=== PATIENT | female | born 1990 | race Two or more races ===

== ENCOUNTER 2024-05-25 14:22 | Outpatient (REF) | payer SELFPAY ==
--- OUTSIDE RECORDS SUMMARY | 2024-05-25 14:26 | XMS_ITS | Encounter Summary ---
Author Organization [employer] Address [address] [facility] 7 [place] [address] Care Team Providers Care Casing Crew Name Role Phone Jose Haider MD Primary Care Prov ider Reason for Visit * Reason Onset Date Comments Nurse Triage 05/23/2024 Encounter Details Date Type Department Care Team ([facility] st Contact Info) Description 05/23/2024 Telephone [facility] CHC MED & PEDS [address] [place] [address] Jose Haider MD [address] [place] [address] Nurse Triage Social History Tobacco Use Types Packs/Day Years Used Date Smoking Tobacco: Some Days Cigarettes Depression Answer Date Recorded Patient Health Questionnaire-9 Score 2 12/18/2022 Housing Stability Answer Date Recorded What is your housing situation today? I have abran mckeon 02/15/[address] you li ve. Do you have problems with any of the following? None of the above 02/15/2023 Food Insecurity Answer Date Recorded Within the past 12 months, y ou worried that your food would run out before you got money to buy more: Never True 02/15/2023 Within the past 12 months,th e food you bought just didn't last and you didn't have enough money to get more: Never True Transportation Answer Date Recorded In the past 12 months, has l ack of transportation kept you from medical appts, meetings, work or from getting things needed for daily living? No 02/15/2023 Utilities Answer Date Recorded In the past 12 months, has t he Turbine, gas, oil or water company threatened to shut off services in your home? No 02/15/2023 Depression Answer Date Recorded Patient Health Questionnaire-2 Score 2 12/18/2022 Comments No Sex and Gender Information Value Date Recorded Sex Assigned at Female 02/16/2022 10:35 AM EDT Legal Sex Female 10:35 AM EDT Gender Identity Female 02/16/2022 10:35 AM EDT Sexual Orientation Bisexual 02/16/2022 10 :35 AM EDT documented as of this encounter Miscellaneous Notes * Telephone Encounter - Bebe Padilla RN - 05/23/2024 12:21 PM EST Call returned to Katelynn Au to triage below. Reports onset of current bleeding started first week of April. Pt using having both bright and marroon color. Changing tampons q2hs. NO large blood clots. No bruising or nosebleeds. Pt advised that last depo in Dec, missed next dose. Pt states did not keep appt for next Depo as did not want to continue with this method. Pt denies any use of any other methods. Pt advised of disposition, agrees to sick on site with CNM to discuss alt BC methods and assess bleeding. Reviewed with pt to call back if bleeding increases, severe pain or to seek ER if afterhours. Pt agrees. Protocol Used: Vaginal Bleeding - Abnormal (Adult) Protocol-Based Disposition: See in Office or Video Visit within 2 Weeks Future Appointments Date Time Provider Department Center 05/25/2024 1:00 PM Brittney Davis CNM MEDICINE [facility] Insurance verified as active per Real Time Eligibility in [facility]. Positive Triage Questions: * Periods last > 7 days * Bleeding or spotting between regular periods occurs more than three cycles (3 months), and using control medicine (e.g., pills, patch, Depo-Provera, Implanon, vaginal ring, Mirena IUD) * All higher-acuity triage questions were negative Care Advice Discussed: * Reasons To Call Back - Severe abdomen pain or lightheadedness occurs - Bleeding worsens - You become worse * Telephone Encounter - Abeba Thrasher - 05/23/2024 12:10 PM EST Symptom: Vaginal Bleeding - Not Outcome: Talk to a nurse or provider within 15 minutes Reason: Heavy bleeding The caller accepted this outcome. documented in this encounter Plan of Treatment Upcoming Encounters Date Type Department Care Team (Late st Contact Info) Description 07/06/2024 1:45 PM EDT Office Visit [facility] MEDICINE [address] [place] [address] Brittney Davis CNM [address] [place], [place] [phone] documented as of this encounter Visit Diagnoses Not on filedocumented in this encounter Additional Health Concerns Assessment Noted Time PHQ-9 Depression Total Score: 2 12/19/19 23 1:47 PM EDT documented as of this encounter Care Teams Casing Crew Relationship Specialty Start Date End Date Jose Haider MD [address] [place] [phone] PCP - General Internal Medicine 09/12/19 documented as of this encounter
--- OUTSIDE RECORDS SUMMARY | 2024-05-25 14:26 | XMS_ITS | Encounter Summary ---
Author Organization [employer] Address [address] [facility] 7 [place] [address] Care Team Providers Care Repairer Auto Clocks Name Role Phone Jose Haider MD Primary Care Prov ider Encounter Details Date Type Department Care Team (Late st Contact Info) Description 05/25/2024 1:00 PM EST Office Visit [facility] MEDICINE [address] [place], [place] [phone] Brittney Davis CN [address] [place] [address] Abnormal uterine bleeding (Primary Dx); Screening examination for venereal disease; Condyloma Social History Tobacco Use Types Packs/Day Years Used Date Smoking Tobacco: Former Cigarettes Tobacco Cessation:Counseling Given: Not Answered Comments:Vapinf 5% nicotine Alcohol Use Standard Drinks/Week Comments Not Currently 0 (1 standard drink = 0.6 oz pur e alcohol) Depression Answer Date Recorded Patient Health Questionnaire-9 Score 2 12/18/2022 Housing Stability Answer Date Recorded What is your housing situation today? I have abransigrid mckeon 02/15/[address] you [...] the past 12 months, has t he electric, gas, oil or water company threatened to [...] AM EDT documented as of this encounter Last Filed Vital Signs Vital Sign Reading Time Taken Comments Blood Pressure 112/68 05/25/2024 1:34 PM EST Pulse 100 05/25/2024 1:34 PM EST Temperature 36.3 ??C (97.3 ??F) 05/25/2024 1:34 PM ES T Respiratory Rate 20 05/25/2024 1:34 PM EST Oxygen Saturation 99% 05/25/2024 1:34 PM EST Inhaled Oxygen Concentration - - Weight 78.7 kg (173 lb 6.4 oz) 05/25/2024 1:34 P M EST Height 162.6 cm (5' 4 ) 05/25/2024 1:34 PM EST Body Mass Index 29.76 05/25/2024 1:34 PM EST documented in this encounter Plan of Treatment Upcoming Encounters Date Type Department Care Team (Late st Contact Info) Description 07/06/2024 1:45 PM EDT Office Visit [facility] MEDICINE [address] [place] [address] Brittney Davis CNM [address] [place] [address] Scheduled Orders Name Type Priority Associated Diagnoses Orde r Schedule Chlamydia/N. Gonorrhoeae RNA, TMA, Vagina Microbiology Routine Screening examination for venereal disease Ordered: 05/25/2024 Trichomonas RNA (Urine/Vaginal) Lab Routine Screening examination for venereal disease Ordered: 05/25/2024 Syphilis Screen Lab Routine Screening examination for venereal disease Expected: 05/25/2024 (Approximate), Expires: 05/25/2025 HIV-1/2 Antigen and Antibodies, Fourth Generation, with Reflexes Lab Routine Screening examination for venereal disease Expected: 05/25/2024 (Approximate), Expires: 05/25/2025 Hepatitis B Core Antibody, Total Lab Routine Screening examination for venereal disease Expected: 05/25/2024 (Approximate), Expires: 05/25/2025 Hepatitis B Surface Antibody, Qualitative Lab Routine Screening examination for venereal disease Expected: 05/25/2024 (Approximate), Expires: 05/25/2025 Hepatitis B surface antigen, EIA Lab Routine Screening examination for venereal disease Expected: 05/25/2024 (Approximate), Expires: 05/25/2025 Hepatitis C Antibody with Reflex to HCV, RNA, Quantitative, Real-Time PCR Lab Routine Screening examination for venereal disease Expected: 05/25/2024 (Approximate), Expires: 05/25/2025 Chlamydia/N. Gonorrhoeae RNA, TMA, Throat Microbiology Routine Screening examination for venereal disease Expected: 05/25/2024 (Approximate), Expires: 05/25/2025 documented as of this encounter Procedures Procedure Name Priority Date/Time Associated Diagnosis Comments POCT , URINE Routine 05/25/2024 2:11 PM EST Abnormal uterine bleeding POCT HEMOGLOBIN Routine 05/25/2024 1:34 PM EST Abnormal uterine bleeding documented in this encounter Results * POCT , urine manually resulted (05/25/2024 2:11 PM EST) Preg Test, Ur Negative Negative, Indeterminate, None Detected, Invalid, Specimen unsatisfactory for evaluation, Weakly Positive QC Media Lot # [id number] Lot# Expiration Date [id number] Urine 05/25/2024 2:11 PM EST Brittney Davis CNM POINT OF CARE TEST ENTER/ EDIT ORDERABLES Final Result * POCT hemoglobin docked device (05/25/2024 1:34 PM EST) Hemoglobin 12.6 12.0 - 15.0 QC Media Lot # [id number] Lot# Expiration Date [id number] Blood 05/25/2024 1:34 PM EST Brittney Susan CN POINT OF CARE TEST ENTER/ EDIT ORDERABLES Final Result documented in this encounter Visit Diagnoses Diagnosis Abnormal uterine bleeding- Primary Unspecified disorder of menstruation and other abnormal bleeding from female genital tract Screening examination for venereal disease Condyloma Condyloma acuminatum documented in this encounter Additional Health Concerns Assessment Noted Time PHQ-9 Depression Total Score: 2 12/19/19 23 1:47 PM EDT documented as of this encounter Care Teams Repairer Auto Clocks Relationship Specialty Start Date End Date Jose Haider MD [address] [place] [phone] PCP - General Internal Medicine 09/12/19 documented as of this encounter
--- OUTSIDE RECORDS SUMMARY | 2024-05-25 14:26 | XMS_ITS | Encounter Summary ---
Author Organization [employer] Address [address] [place] [address] [address] [place] [address] Care Team Providers Care Lumber Loader Name Role Phone Jose Haider MD Primary Care Prov ider Encounter Details Date Type Department Care Team (Late st Contact Info) Description 04/09/2022 Orders Only [facility] MEDICINE [address] [place] [phone] Jose Haider MD [address] [place] [phone] control counseling (Primary Dx) Social History Tobacco Use Types Packs/Day Years Used Date Smoking Tobacco: Some Days Cigarettes Comments No Sex and Gender Information Value Date Recorded Sex Assigned at Female 02/16/2022 10:35 AM EDT Legal Sex Female 10:35 AM EDT Gender Identity Female 02/16/2022 10:35 AM EDT Sexual Orientation Bisexual 02/16/2022 10 :35 AM EDT COVID-19 Exposure Response Date Recorded In the last 10 days, have yo u been in contact with someone who was confirmed or suspected to have Coronavirus/COVID-19? No / Unsure 04/09/2022 1:49 PM EST documented as of this encounter Plan of Treatment Upcoming Encounters Date Type Department Care Team (Late st Contact Info) Description 07/06/2024 1:45 PM EDT Office Visit [facility] MEDICINE [address] [place] [phone] Brittney Davis CNM [address] [place], [place] [phone] documented as of this encounter Visit Diagnoses Diagnosis control counseling- Primary documented in this encounter Care Teams Lumber Loader Relationship Specialty Start Date End Date Jose Haider MD [address] [place] [phone] PCP - General Internal Medicine 09/12/19 documented as of this encounter
--- OUTSIDE RECORDS SUMMARY | 2024-05-25 14:26 | XMS_ITS | Encounter Summary ---
Author Organization [employer] Address [address] [facility] 7t [place] [address] Care Team Providers Care Corporate Executive Chef Name Role Phone Jose Haider MD Primary Care Prov ider Encounter Details Date Type Department Care Team (Latest Contact Info) Description 05/25/2024 Travel Social History Tobacco Use Types Packs/Day Years Used Date Smoking Tobacco: Former Cigarettes Comments:Vapinf 5% nicotine Alcohol Use Standard Drinks/Week [...] AM EDT documented as of this encounter Plan of Treatment Upcoming Encounters Date Type Department Care Team (Late st Contact Info) Description 07/06/2024 1:45 PM EDT Office Visit [facility] MEDICINE [address] [place] [address] Brittney Davis CNM [address] [place] [address] documented as of this encounter Visit Diagnoses Not on filedocumented in this encounter Additional Health Concerns Assessment Noted Time PHQ-9 Depression Total Score: 2 12/19/19 23 1:47 PM EDT documented as of this encounter Care Teams Corporate Executive Chef Relationship Specialty Start Date End Date Jose Haider MD [address] [place] [phone] PCP - General Internal Medicine 09/12/19 documented as of this encounter
--- OUTSIDE RECORDS SUMMARY | 2024-05-25 14:26 | XMS_ITS | Encounter Summary ---
Author Organization [employer] Address [address] [facility] 7 [place] [address] Care Team Providers Care Oracle Fusion Developer Name Role Phone Jose Haider MD Primary Care Prov ider Reason for Visit * Reason Onset Date Comments Triage 08/21/2022 Encounter Details Date Type Department Care Team ([facility] st Contact Info) Description 08/21/2022 Telephone [facility] CHC MED & PEDS [address] [place] [address] Jose Haider MD [address] [place] [address] Triage Social History Tobacco Use Types Packs/Day [...] encounter Miscellaneous Notes * Telephone Encounter - Therese Zuniga RN - 08/21/2022 2:52 PM EDT Triage call Pt reports , 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 Pt reports has never had this kind of pain before but, it feels like muscle type pain in right hand/arm . Pt denies swelling, redness , warmth. Pt is using tiger balm and biofreeze creams at night but, it hurts more duringthe day. Apt with PCP 08/27 @ 130pm. Pt is offered apt 08/25 but requests 08/27 due to work schedule. Pt agrees with disposition and home care reviewed. Protocol Used: Hand and Wrist Pain (Adult) Protocol-Based Disposition: See in Office or Video Visit within 3 Days Override (Final) Disposition: See in Office or Video Visit within 2 Weeks Override Reason: Other Video visit not offered Positive Triage Questions: * Moderate pain (e.g., interferes with normal activities) and present > 3 days * Patient wants to be seen * All higher-acuity triage questions were negative Care Advice Discussed: * Reassurance and Education - Overuse * Use a Cold Pack for Pain * Use Heat After 48 Hours for Pain * Rest * Pain Medicines * Pain Medicines - Extra Notes and Warnings * Expected Course * Reasons To Call Back - Moderate pain (e.g., interferes with normal activities) lasts more than 3 days - Mild pain lasts more than 7 days - Arm swelling occurs - Signs of infection occur (e.g., spreading redness, warmth, fever) - You become worse * Telephone Encounter - Zhou Xavier - 08/21/2022 2:33 PM EDT Symptom: Pain - Severe Outcome: Schedule an urgent appointment (within 1 hour) or talk to a nurse or provider soon Reason: Caller denied all higher acuity questions The caller accepted this outcome Please contact pt at [phone] documented in this encounter Plan of Treatment Upcoming Encounters Date Type Department Care Team (Late st Contact Info) Description 07/06/2024 1:45 PM EDT Office Visit [facility] MEDICINE [address] [place], [place] [phone] Brittney Davis CNM [address] [place] [address] documented as of this encounter Visit Diagnoses Not on filedocumented in this encounter Care Teams Oracle Fusion Developer Relationship Specialty Start Date End Date Jose Haider MD [address] [place] [phone] PCP - General Internal Medicine 09/12/19 documented as of this encounter
--- OUTSIDE RECORDS SUMMARY | 2024-05-25 14:26 | XMS_ITS | Encounter Summary ---
Author Organization [email or web address] Address [address] [place] [address] [address] [place] [address] Care Team Providers Care Fire Officer Name Role Phone Jose Haider MD Primary Care Prov ider Reason for Visit * Reason Onset Date Comments Appointment Request 08/21/2022 Encounter Details Date Type Department Care Team (Late Contact Info) Description 08/21/2022 Telephone [facility] CHC MED & PEDS [address] [place] [address] Jose Haider MD [address] [place] [address] Appointment Request Social History Tobacco Use Types Packs/Day Years Used Date Smoking Tobacco: Some Days Cigarettes Comments No Sex and Gender Information Value Date Recorded Sex Assigned at Female 02/16/2022 10:35 AM EDT Legal Sex Female 10:35 AM EDT Gender Identity Female 02/16/2022 10:35 AM EDT Sexual Orientation Bisexual 02/16/2022 10 :35 AM EDT documented as of this encounter Miscellaneous Notes * Telephone Encounter - Zhou Xavier - 08/21/2022 2:33 PM EDT Tc from pt requesting an appt for her next depo shot. Please contact pt at [phone] documented in this encounter Plan of Treatment Upcoming Encounters Date Type Department Care Team (Late Contact Info) Description 07/06/2024 1:45 PM EDT Office Visit [facility] MEDICINE [address] [place], [place] [phone] Brittney Davis CNM [address] [place], [place] [phone] documented as of this encounter Visit Diagnoses Not on filedocumented in this encounter Care Teams Fire Officer Relationship Specialty Start Date End Date Jose Haider MD [address] [place] [phone] PCP - General Internal Medicine 09/12/19 documented as of this encounter
--- OUTSIDE RECORDS SUMMARY | 2024-05-25 14:26 | XMS_ITS | Clinical Summary ---
Author Organization [employer] Address [address] [facility] 7 [place] [address] Care Team Providers Care Normalizer Name Role Phone Jose Haider MD Primary Care Prov ider Allergies Active Allergy Reactions Criticality Noted Date Comments Cyclobenzaprine Rash Low 02/08/2020 Penicillin G Rash Low 02/08/2020 Medications cholecalciferol (Vitamin D-3) 50 MCG (1999) tablet Take 1 tablet by mouth in the morning. 07/05/19 22 Active LORazepam (Ativan) 1 MG tablet Take 1 tablet by mouth at bed time. Active nicotine (Nicoderm, Step 2) 14 MG/24HR patch Place 1 patch on the skin at bed time. 06/28/19 21 Active nicotine (Nicoderm, Step 3) 7 MG/24HR patch Place 1 patch on the skin at bed time. 06/28/19 21 Active nicotine polacrilex (Nicorette) 2 MG gum Take by mouth. 06/28/19 21 Active omeprazole (PriLOSEC) [address] capsule Take 1 capsule by mouth with breakfast and with evening meal. Active oxyCODONE-acetamin ophen (Percocet) 5-325 MG tablet Take 1 tablet by mouth every 6 (six) hours. Active ARIPiprazole (Abilify) 10 MG tablet TAKE 1 TABLET BY MOUTH EVERYDAY AT BEDTIME 07/11/19 22 Active FLUoxetine (PROzac) 20 MG capsule TAKE 2 CAPSULES BY MOUTH EVERY DAY IN THE MORNING 05/23/19 22 Active ondansetron ODT (Zofran-ODT) 4 MG disintegrating tablet DISSOLVE 1 TABLET BY MOUTH 3 TIMES A DAY NEEDED FOR NAUSEA 04/03/20 22 Active tamsulosin (Flomax) 0.4 MG 24 hr capsule TAKE 1 CAPSULE BY MOUTH EVERY DAY AT BEDTIME FOR KIDNEY STONE 04/03/20 22 Active ibuprofen 600 MG tablet TAKE 1 TABLET BY MOUTH EVERY 6 HOURS NEEDED FOR PAIN MAX 2400MG/DAY 90 tablet 09/17/19 23 Active methocarbamol (Robaxin) 750 MG tabletIndications: Chronic midline low back pain with right-sided sciatica Take 1 tablet (750 mg) by mouth 4 times daily for 10 days. 40 tablet 09/25/19 23 Active melatonin 10 MG tablet Take 1 tablet (10 mg) by mouth at bedtime. 90 tablet 12/19/19 23 Active hydrOXYzine HCl (Atarax) 25 MG tablet TAKE 1 TABLET BY MOUTH TWICE A DAY NEEDED 60 tablet 12/19/19 23 Active gabapentin (Neurontin) 300 MG capsule Take 300 mg by mouth 2 times daily. 07/08/19 24 Active gabapentin (Neurontin) 600 MG tablet 09/29/19 24 Active oxyCODONE (Roxicodone) 5 MG immediate release tablet Take 5 mg by mouth every 6 (six) hours if needed. 09/12/19 24 Active prazosin (Minipress) 1 MG capsule TAKE 1 CAPSULE BY MOUTH EVERY DAY AT NIGHT 06/04/19 24 Active propranolol (Inderal) 10 MG tablet 09/29/19 24 Active QUEtiapine (SEROquel) 25 MG tablet 09/30/19 24 Active podofilox (Condylox) 0.5 % gel Apply twice a day x 3 days, then stop for 4 days. Repeat this cycle weekly for a month (4 weeks) 3.5 g 1 05/25/19 25 Active Drospirenone (Slynd) 4 MG tablet Take 1 tablet by mouth Once per day. 28 tablet 11 05/25/19 25 Active medroxyPROGESTERon e (Depo-Provera) 150 MG/ML injection Inject 1 mL (150 mg) into the shoulder, thigh, or buttocks every 3 (three) months. 1 mL 3 09/15/19 24 025 Discontin ued(Side effects) Active Problems Problem Noted Date Diagnosed Date Sprain of right ankle 10/10/2023 Overview (10/10/2023): Elevate foot 30 degrees above baseline for at least 15min 3x/d. She's to be out of work x 1w then back with restriciton to lift heavy weights. Wear ankle brace daily, walk with a cane Ibuprofen + tamadol prn x 1w max, precautions with driving and activities that require vigilance. Will refer to PT for complete rehab as she has to walk all day. Assessment & Plan (10/10/2023 6:35 PM EDT): Elevate foot 30 degrees above baseline for at least 15min 3x/d. She's to be out of work x 1w then back with restriciton to lift heavy weights. Wear ankle brace daily, walk with a cane, needs a rx for a cane. Ibuprofen + tamadol prn x 1w max, precautions with driving and activities that require vigilance. Will refer to PT for complete rehab as she has to walk all day. Acute vaginitis 10/01/2023 Skin tag of vulva 10/01/2023 Assessment & Plan (10/01/2023 2:50 PM EDT): Patient with perineum skin tag . -Pt was educated on how the removal of the tag's takes place if she decided to have them removed. Encounter for initial prescr iption of injectable contraceptive 09/15/2023 Assessment & Plan (09/15/2023 12:26 PM EDT): Patient used to be on depo, stopped over a year ago, risk vs benefit, will order a test and will order depo shot Anxiety 01/19/2023 Assessment & Plan (01/19/2023 8:44 PM EDT): Will provide hydroxyzine, oriented of stress releasing exercises, call back if not improving Gastroesophageal reflux disease without esophagi tis 01/19/2023 Assessment & Plan (01/19/2023 8:50 PM EDT): Will provide sucralfate, patient on omeprazole still complaining of sumptoms, lifestyle modifications were reinforced Tendinitis of forearm 08/27/2022 Assessment & Plan (08/27/2022 1:50 PM EDT): Patient does constant repetitive movement, currently pain is not active, told to rest, apply cold pack, se OTC biofreeze/icy-hot, and take ibuprofen as needed Other insomnia 08/27/2022 Assessment & Plan (01/19/2023 8:45 PM EDT): Will provide melatonin, lifestyle modifications were discussed Assessment & Plan (08/27/2022 1:51 PM EDT): Will prescribe trazodone 50mg, side effects were discussed Cough in adult 03/25/2022 Hiatal hernia 03/03/2022 Mood disorder 03/03/2022 Encounters Date Type Department Care Team Description 05/25/2024 1:00 PM EST Office Visit [facility] [address] [place] [address] Brittney Davis CNM Abnormal uterine bleeding (Primary Dx); Screening examination for venereal disease; Condyloma 05/25/2024 Travel 05/23/2024 Telephone [facility] [address] [place] [address] Jose Haider MD Nurse Triage 03/10/2024 Telephone [facility] [address] [place] [address] Jose Haider MD No Show from Last 3 Months Immunizations Name Administration Dates Next Due DTaP 05/23/1998 HPV 9-Valent 03/15/2019 Hep B, adult 03/07/2019,12/25/1996 IPV 07/02/2009 MMR 12/25/1996 Meningococcal MCV4P ACYW-135 07/02/2009 Moderna Covid-19 Vaccine 12+ 09/26/2020,08/30/19 21 TD (adult), 2 Lf tetanus tox oid, preservative free, adsorbed 07/02/2009 Tdap 09/08/2020,07/05/2006 Social History Tobacco Use Types Packs/Day Years [...] Orientation Bisexual 02/16/2022 10 :35 AM EDT Last Filed Vital Signs Vital Sign Reading [...] Mass Index 29.76 05/25/2024 1:34 PM EST Plan of Treatment Upcoming Encounters Date Type Department Care Team (Late st Contact Info) Description 07/06/2024 1:45 PM EDT Office Visit [facility] [address], [place] [phone] Susan Brittney, CNM [address] [place] [address] Health Maintenance Due Date Last Done Comments HIV Screening 1992 Alcohol/Substance Use Screening 2004 IPV Vaccines (2 of 3 - 4-dose series) 07/30/2009 07/02/2009 Pneumococcal Vaccine: Pediatrics (0 to 5 Years) and At-Risk Patients (6 to 49) Years) (1 of 2 - PCV) 12/16/2011 HPV Vaccines (2 - 3-dose series) 04/12/2019 03/15/2019 Hepatitis B Vaccines (3 of 3 - 3-dose series) 05/02/2019 03/07/2019, 12/25/1996 COVID-19 Vaccine (3 - season) 2023 09/26/2020, 08/29/2020 Depression Screening 12/19/2023 12/18/2022, 12/19/19 Influenza Vaccine (#1) 2023 SDOH Screening 12/19/2023 12/18/2022 Family Planning (PISQ) 09/16/2024 09/17/2023 Cervical Cancer Screening 05/12/2025 HPV/Cotest 05/12/2025 Pap Smear 05/12/2025 05/12/2022, 12/06/2018 Tobacco Screening 05/25/2025 05/25/2024 DTaP/Tdap/Td Vaccines (5 - Td or Tdap) 09/08/2030 09/08/2020, 07/02/2009, 07/05/2006, Additional history exists Zoster Vaccines (1 of 2) 2042 RSV Patients and Patients Aged 60 years or older (1 - 1-dose 75+ series) 12/16/2067 Meningococcal Vaccine Completed 07/02/2009 Hepatitis C Screening Completed 06/24/2020 HIB Vaccines Aged Out No longer eligi ble based on patient's age to complete this topic Hepatitis A Vaccines Aged Out No long er eligible based on patient's age to complete this topic RSV under 20 months Aged Out No longe r eligible based on patient's age to complete this topic Rotavirus Vaccines Aged Out No longer eligible based on patient's age to complete this topic Procedures Procedure Name Priority Date/Time Associated Diagnosis Comments POCT , URINE Routine 05/25/2024 2:11 PM EST Abnormal uterine bleeding POCT HEMOGLOBIN Routine 05/25/2024 1:34 PM EST Abnormal uterine bleeding IMAGE-GUIDED PAP W/AGE BASED SCR,W/CT/NG/TRICH Routine 05/12/2022 12:00 AM EST JUDI HISTORICAL HEPATITIS C ANTIBODY Routine 06/24/2020 1:04 PM EST from Last 3 Months or Most Recently Relevant to Health Maintenance Results * POCT , urine manually resulted (05/25/2024 2:11 PM EST) Preg Test, Ur Negative Negative, Indeterminate, None Detected, Invalid, Specimen unsatisfactory for evaluation, Weakly Positive QC Media Lot # [id number] Lot# Expiration Date [id number] Urine 05/25/2024 2:11 PM EST [facility] POINT OF CARE TEST ENTER/ EDIT ORDERABLES Final Result * POCT hemoglobin docked device (05/25/2024 1:34 PM EST) Pathologist [facility] Hemoglobin 12.6 12.0 - 15.0 QC Media Lot # [id number] Lot# Expiration Date [id number] Blood 05/25/2024 1:34 PM EST [facility] POINT OF CARE TEST ENTER/ EDIT ORDERABLES Final Result * Image-Guided Pap with Age-Based Screening??with CT/NG,??Trichomonas (05/12/2022 12:00 AM EST) Comment [facility] Comment: This order for age-based cervical cancer and STI screening follows ACOG guidelines(PB 168, 140, SOH517). See individual assays for performing site location. Clinical Information: Routine exam RTN SCREEN [facility] LMP: NONE GIVEN [facility] Prev. PAP: NONE GIVEN [facility] Prev. BX: NONE GIVEN [facility] SOURCE: None given [facility] Statement Of Adequacy: [facility] Comment: Satisfactory for evaluation. Endocervical/transformation zone component present. Interpretation/Re sult: Negative for intraepithelial lesion or malignancy. [facility] Infection Fungal organisms morphologically consistent with Corinna spp. [employer] [place] [facility] COMMENT: This Pap test has been evaluated with computer assisted technology. [employer] [place] [employer] Lithograph[employer] Machine Operator: [facility] Comment: BLC,CT(ASCP) CT screening location: [address] ??[id number] (Always Message) Que st [facility] Comment: EXPLANATORY NOTE: The Pap is a screening test for cervical cancer. It is not a diagnostic test and is subject to false negative and false positive results. It is most reliable when a satisfactory sample, regularly obtained, is submitted with relevant clinical findings and history, and when the Pap result is evaluated along with historic and current clinical information. Chlamydia trachomatis RNA, TMA, Urogenital NOT DETECTED NOT DETECTED [employer] [place] [facility] Neisseria gonorrhoeae RNA, TMA, Urogenital NOT DETECTED NOT DETECTED [facility] (Always Message) Que st [facility] Comment: The analytical performance characteristics of this assay, when used to test SurePath(TM) specimens have been determined by [employer]. The modifications have not been cleared or approved by the FDA. This assay has been validated pursuant to the CLIA regulations and is used for clinical purposes. For additional information, please refer to https://education.WonderHowTo/faq/PNV085 (This link is being provided for information/ educational purposes only.) Trichomonas vaginalis, QL, TMA, PAP Vial NOT DETECTED NOT DETECTED [employer] [place] [employer] Comment: The analytical performance characteristics of this assay have been determined by [employer]. The modifications have not been cleared or approved by the FDA. This assay has been validated pursuant to the CLIA regulations and is used for clinical purposes. For additional information, please refer to http://education.WonderHowTo/ faq/Trichomonastma (This link is being provided for information/ educational purposes only.) 05/12/2022 05/14/2022 12: 36 AM EST Narrative [facility] - 05/21/2022 4:39 PM EST FASTING: UNKNOWN Brittney [facility] ORDERABLES F inal Result Performing Organization Address [facility] Co de Phone Number [facility] [address], [place] [address] [employer] [place] [facility] [address] [facility], ([address]) [place] [address] * Hepatitis C Antibody (06/24/2020 1:04 PM EST) Hepatitis C Antibody Nonreactive Nonreactive [facility] Comment: Antibodies to HCV not detected; does not exclude early acute HCV infection. Hepatitis B Surface Antigen Negative Negative [facility] 06/24/2020 1:04 PM EST Philip De La Garza MD HISTORICAL/NON ORDERABLE LABS Fi nal Result Performing Organization Address [facility]/ZIP Co de Phone Number [facility] [address] from Last 3 Months or Most Recently Relevant to Health Maintenance Insurance [address] [place] [id number] Care Teams Normalizer Relationship Specialty Start Date End Date Jose Haider MD [address] [place] [id number] PCP - General Internal Medicine 09/12/19
--- OUTSIDE RECORDS SUMMARY | 2024-05-25 14:26 | XMS_ITS | Encounter Summary ---
Author Organization [employer] Address [address] [facility] 7 [place] [address] Care Team Providers Care Manager Hotel Name Role Phone Jose Haider MD Primary Care Prov ider Reason for Visit * Reason Onset Date Comments Appointment Request 07/19/2023 Encounter Details Date Type Department Care Team ([facility] st Contact Info) Description 07/19/2023 Telephone [facility] [address] [place] [address] Jose Haider MD [address] [place] [address] Appointment Request Social History Tobacco Use Types [...] t he electric, gas, oil or water [employer] threatened to shut off services in your [...] encounter Miscellaneous Notes * Telephone Encounter - Fernanda Stinson RN - 09/15/2023 9:29 AM EDT Returned call to pt and informed of need to discuss contraception with PCP as pt has been inconsistent with this type of BC. Pt agrees to televisit with PCP this morning to discuss. Pt also informed that PAP is not due until 2025. Pt agrees with plan. * Telephone Encounter - Fernanda Stinson RN - 07/27/2023 1:06 PM EDT Pt last depo was almost a year ago. Please advise if new order can be sent or if pt should discuss with PCP first regarding contraception as pt has not been consistent with Depo. Pap is not due [id number]. * Telephone Encounter - Salome Starkey - 07/19/2023 1:23 PM EDT Tc from pt requesting depo and belt repairer appt. No concerns at the moment. documented in this encounter Plan of Treatment Upcoming Encounters Date Type Department Care Team (Late st Contact Info) Description 07/06/2024 1:45 PM EDT Office Visit [facility] [address] [place] [address] Brittney Davis CNM [address], [place] [phone] documented as of this encounter Visit Diagnoses Not on filedocumented in this encounter Additional Health Concerns Assessment Noted Time PHQ-9 Depression Total Score: 2 12/19/19 23 1:47 PM EDT documented as of this encounter Care Teams Manager Hotel Relationship Specialty Start Date End Date Jose Haider MD [address] [place] [phone] PCP - General Internal Medicine 09/12/19 documented as of this encounter
[2024-05-26 02:04] LABS: CT PCR NOT DETECTED (Not Detect.); NG PCR NOT DETECTED (Not Detect.)
[2024-05-26 08:02] LABS: HBS Num1 160.39 mIU/mL (0-7.99); HBc Num1 0.06 S/CO (0.00-0.79); HBsAGNum1 0.38 S/CO (0.00-0.99); HIV AB/AG Nonreactive (Nonreactive); HIV Num 1 0.06 S/CO (0.00-0.99); Hepatitis B Core Antibody Nonreactive (Nonreactive); Hepatitis B Surface Antigen Negative (Negative); Syphilis Screen Nonreactive (Nonreactive); ~HepC Num1 0.08 S/CO (0.00-0.79); ~Hepatitis B Surface Antibody REACTIVE (Nonreactive); ~Hepatitis C Antibody Nonreactive (Nonreactive)
[2024-05-30 02:28] LABS: Trichomonas vaginalis RNA Not Detected (Not Detected)
[2024-05-30 07:44] LABS: C. Trachomatis RNA TMA, Throat NOT DETECTED; N. gonorrhoeae RNA TMA, Throat NOT DETECTED
== END 2024-05-25 14:23 | disposition home or self-care (01) ==
LOC: HO.HHCL 14:22
PROVIDERS: Visit Provider Advanced Practice Midwife
DX: Z11.3 Encounter for screening for infections with a predominantly sexual mode of transmission (principal); Z11.59 Encounter for screening for other viral diseases; Z72.89 Other problems related to lifestyle
CPT/HCPCS: 36415; 86704; 86706; 86780; 86803; 87340; 87389; 87491; 87591; 87661